=== PATIENT | female | born 1995 | race Two or more races ===

== ENCOUNTER 2018-04-23 19:24 | Emergency (ER) | payer SELFPAY ==
[~2018-04-23] VITALS: Ht 170.2 cm; Wt 77.1 kg
[~2018-04-23 19:24] MED LIST: FERROUS SULFAT325 MG ORAL; MOTRIN600 MG PO; NKM
--- NOTE | 2018-04-23 19:35 | NUR ---
ED Nurse Note: pt ambulated to ED c/o lower right abdominal pain and lower back pain x 1week. patient rates her pain a 6/10 pain and states that "her stomach has been making alot of noises"
[2018-04-23 19:36] VITALS: BP 132/75
[2018-04-23 20:13] LABS: APPEARANCE,URINE CLEAR; BILIRUBIN, URINE NEGATIVE (NEGATIVE); COLOR,URINE PALE YELLOW; GLUCOSE, URINE (UA) NEGATIVE (NEGATIVE); KETONES,URINE NEGATIVE (NEGATIVE); LEUKOCYTE ESTERASE ,URINE 1+ (NEGATIVE); NITRITE,URINE NEGATIVE (NEGATIVE); PH,URINE 7 (4.5-8.0); PROTEIN,URINE NEGATIVE (NEGATIVE); UROBILINOGEN,URINE NORMAL MG/DL (0.0-1.0)
[2018-04-23 20:14] LABS: ANION GAP 8 mmol/L (5-15); BLOOD UREA NITROGEN 8 mg/dL (7-18); CALCIUM 9.8 MG/DL (8.5-10.1); CARBON DIOXIDE 28 MMOL/L (21-32); CHLORIDE 104 MMOL/L (98-107); CREATININE 0.8 MG/DL (0.55-1.30); POTASSIUM 4.1 MMOL/L (3.5-5.1); SODIUM 140 MMOL/L (136-145)
[2018-04-23 20:21] LABS: ALANINE AMINOTRANSFERASE 15 U/L (12-78); ALBUMIN 3.9 G/DL (3.4-5.0); ALBUMIN/GLOBULIN RATIO 0.9 (1.0-2.7); ALKALINE PHOSPHATASE 91 U/L (46-116); ASPARTATE AMINO TRANSFERASE 12 U/L (15-37); BILIRUBIN,TOTAL 0.3 MG/DL (0.2-1.0)
[2018-04-23 20:27] LABS: BASOPHILS % (AUTO) 1.3 % (0.0-2.0); EOSINOPHILS % (AUTO) 1.6 % (0.0-3.0); HEMATOCRIT 39.1 % (37.0-47.0); HEMOGLOBIN 12.4 G/DL (12.0-16.0); LYMPHOCYTES % (AUTO) 35.2 % (20.0-45.0); MEAN CORPUSCULAR VOLUME 83 FL (80-99); MONOCYTES % (AUTO) 7.7 % (1.0-10.0); NEUTROPHILS % (AUTO) 54.3 % (45.0-75.0); PLATELET COUNT 294 K/UL (150-450); RED BLOOD COUNT 4.72 M/UL (4.20-5.40); RED CELL DISTRIBUTION WIDTH 12.9 % (11.6-14.8); WHITE BLOOD COUNT 7.4 K/UL (4.8-10.8)
--- NOTE | 2018-04-23 20:47 | NUR ---
X-ray notified to page [employer] tech.
--- NOTE | 2018-04-23 21:23 | Emergency Room Report ---
History of Present Illness General Chief Complaint: Abdominal Pain Source: Patient Present Illness HPI 22-year-old female presents to the emergency department complaining of 6 out of 10 in severity right lower quadrant abdominal pain progressive 1 week. Patient reports constant dull ache with intermittent sharp episodes of pain. Patient denies fevers, chills, nausea or vomiting. Patient denies vaginal discharge or bleeding. Patient states that her next her menstrual cycle is not due for 2 weeks she denies suspicion of . Patient states that her pain is localized in the right lower quadrant and will on occasion radiate backwards her low back trauma or fall she denies constipation or diarrhea. She denies suspicion of STI eyes denies dysuria she does report increase in urinary frequency and strong odor of the urine she denies urgency or hematuria. Allergies: Coded Allergies: No Known Allergies (Unverified , 06/29/12) Patient History Past Medical History: see triage record Past Surgical History: none Pertinent Family History: none Last Menstrual Period: 04/05/2018 Now: No Reviewed Nursing Documentation: PMH: Agreed; PSxH: Agreed Nursing Documentation-PMH Past Medical History: No Stated History Review of Systems All Other Systems: negative except mentioned in HPI Physical Exam Vital Signs Date Time Temp Pulse Resp B/P (MAP) Pulse Ox O2 Delivery O2 Flow Rate FiO2 04/23/18 19:29 98.4 93 14 141/79 97 Room Air Sp02 EP Interpretation: reviewed, normal General Appearance: no apparent distress, alert, GCS 15, non-toxic Head: normocephalic, atraumatic Eyes: bilateral eye normal inspection, bilateral eye PERRL ENT: hearing grossly normal, normal voice Neck: full range of motion Respiratory: lungs clear, normal breath sounds, speaking full sentences Cardiovascular #1: regular rate, rhythm Gastrointestinal: normal bowel sounds, non tender, soft, non-distended, no guarding Rectal: deferred Genitourinary: normal inspection, no CVA tenderness, ext genitalia/vag normal, other - Mild right adnexal TTP Musculoskeletal: back normal, gait/station normal, normal range of motion, non- tender Neurologic: alert, oriented x3, responsive, motor strength/tone normal, sensory intact, normal gait, speech normal, grossly normal Psychiatric: judgement/insight normal Skin: normal color, no rash, warm/dry, well hydrated Lymphatic: no adenopathy Medical Decision Making PA Attestation Dr. Powell is my supervising Physician whom patient management has been discussed with. Diagnostic Impression: Primary Impression: Ovarian cyst Qualified Codes: N83.201 - Unspecified ovarian cyst, right side ER Course 22-year-old female presents to the emergency department complaining of 6 out of 10 in severity right lower quadrant abdominal pain progressive 1 week. Patient reports constant dull ache with intermittent sharp episodes of pain. Patient denies fevers, chills, nausea or vomiting. Patient denies vaginal discharge or bleeding. Patient states that her next her menstrual cycle is not due for 2 weeks she denies suspicion of . Patient states that her pain is localized in the right lower quadrant and will on occasion radiate backwards her low back trauma or fall she denies constipation or diarrhea. She denies suspicion of STI eyes denies dysuria she does report increase in urinary frequency and strong odor of the urine she denies urgency or hematuria. Ddx considered but are not limited to Diverticulitis, acute appy, diarrhea,UC, PUD, GE, pancreatitis, gallstone, ovarian torsion, ectopic , PID tubo-ovarian abscess. Vital signs: are WNL, pt. is afebrile H&PE are most consistent with possible ovarian cyst ORDERS: -CBC, CMP, LIPASE: Unremarkable -UA: Unremarkable -URINE HCG:Negative ED INTERVENTIONS: -Pt. declines pain medication at this time. -Toradol IV Low suspicion for Appendicitis at this time, given lack of significant tenderness on PE. --US- 2mm right ovarian cyst. DISCHARGE: At this time pt. is stable for d/c to home. Will provide printed patient care instructions, and any necessary prescriptions. Care plan and follow up instructions have been discussed with the patient prior to discharge. Labs Test 04/23/18 18:50 04/23/18 19:50 White Blood Count 7.4 K/UL (4.8-10.8) Red Blood Count 4.72 M/UL (4.20-5.40) Hemoglobin 12.4 G/DL (12.0-16.0) Hematocrit 39.1 % (37.0-47.0) Mean Corpuscular Volume 83 FL (80-99) Mean Corpuscular Hemoglobin 26.2 PG (27.0-31.0) Mean Corpuscular Hemoglobin Concent 31.6 G/DL (32.0-36.0) Red Cell Distribution Width 12.9 % (11.6-14.8) Platelet Count 294 K/UL (150-450) Mean Platelet Volume 8.1 FL (6.5-10.1) Neutrophils (%) (Auto) 54.3 % (45.0-75.0) Lymphocytes (%) (Auto) 35.2 % (20.0-45.0) Monocytes (%) (Auto) 7.7 % (1.0-10.0) Eosinophils (%) (Auto) 1.6 % (0.0-3.0) Basophils (%) (Auto) 1.3 % (0.0-2.0) Sodium Level 140 MMOL/L (136-145) Potassium Level 4.1 MMOL/L (3.5-5.1) Chloride Level 104 MMOL/L (98-107) Carbon Dioxide Level 28 MMOL/L (21-32) Anion Gap 8 mmol/L (5-15) Blood Urea Nitrogen 8 mg/dL (7-18) Creatinine 0.8 MG/DL (0.55-1.30) Estimat Glomerular Filtration Rate > 60 mL/min (>60) Glucose Level 91 MG/DL (74-106) Calcium Level 9.8 MG/DL (8.5-10.1) Total Bilirubin 0.3 MG/DL (0.2-1.0) Aspartate Amino Transf (AST/SGOT) 12 U/L (15-37) Alanine Aminotransferase (ALT/SGPT) 15 U/L (12-78) Alkaline Phosphatase 91 U/L (46-116) Total Protein 8.3 G/DL (6.4-8.2) Albumin 3.9 G/DL (3.4-5.0) Globulin 4.4 g/dL Albumin/Globulin Ratio 0.9 (1.0-2.7) Lipase 188 U/L (73-393) Urine Color Pale yellow Urine Appearance Clear Urine pH 7 (4.5-8.0) Urine Specific [place] 1.010 (1.005-1.035) Urine Protein Negative (NEGATIVE) Urine Glucose (UA) Negative (NEGATIVE) Urine Ketones Negative (NEGATIVE) Urine Blood Negative (NEGATIVE) Urine Nitrite Negative (NEGATIVE) Urine Bilirubin Negative (NEGATIVE) Urine Urobilinogen Normal MG/DL (0.0-1.0) Urine Leukocyte Esterase 1+ (NEGATIVE) Urine RBC 0-2 /HPF (0 - 2) Urine WBC 0-2 /HPF (0 - 2) Urine Squamous Epithelial Cells Few /LPF (NONE/OCC) Urine Amorphous Sediment Few /LPF (NONE) Urine Bacteria Few /HPF (NONE) Urine HCG, Qualitative Negative (NEGATIVE) CT/MRI/US Diagnostic Results CT/MRI/US Diagnostic Results : Impression IMPRESSION: Right ovarian cyst measuring 2.1 x 1.8 x 2 cm.-----Per official radiology report- Please see report for specific details. Last Vital Signs Date Time Temp Pulse Resp B/P (MAP) Pulse Ox O2 Delivery O2 Flow Rate FiO2 04/23/18 19:36 93 14 Room Air 04/23/18 19:36 98.4 132/75 97 Status: improved Disposition: HOME, SELF-CARE Condition: Stable Scripts Ibuprofen* (MOTRIN*) 600 Mg Tablet 600 MG ORAL THREE TIMES A DAY, #30 TAB 0 Refills Prov: Tran Cloud 04/23/18 Referrals: NON PHYSICIAN (PCP) Departure Forms: Return to Work Return to Work Date: Apr 26, 2018 Work Restrictions: None Other Restrictions: May return Sooner if Symptoms have resolved. Return to Full Activity: Apr 26, 2018 Patient Instructions: Ovarian Cyst, [id number] Additional Instructions: Take medications as directed. Follow up with a Primary Care Provider in 3-5 days, even if your symptoms have resolved. --Please review list of primary care clinics, if you do not already have a primary care provider Return sooner to ED if new symptoms occur, or current symptoms become worse. - Please note that this Emergency Department Report was dictated using [employer] grinder technology software, occasionally this can lead to erroneous entry secondary to interpretation by the dictation equipment. Tran Cloud Apr 23, 2018 21:23
[2018-04-23] MEDS ORDERED: IBUPROFEN600 MG ORAL (22:36)
[2018-04-23] MEDS ORDERED: Ketorolac 30mg Inj IV ONE (22:45)
--- NOTE | 2018-04-23 22:58 | Diagnostic Imaging Report ---
EXAM: US Pelvis Complete, Transabdominal CLINICAL HISTORY: PAIN TECHNIQUE: Real-time transabdominal pelvic ultrasound (complete) with image documentation. COMPARISON: CT Abdomen and Pelvis dated 06/29/12. FINDINGS: Uterus/cervix: The uterus measures 7.5 x 3.4 x 5.4 cm. Normal endometrial stripe thickness measuring 6.7 mm in thickness.. No myometrial mass. Right ovary: Right ovary measures 2.6 x 2.6 x 2.7 cm. Right ovarian cyst measuring 2.1 x 1.8 x 2 cm. Normal blood flow. Left ovary: Left ovary measures 2.8 x 2.1 x 2.4 cm. Normal blood flow. Free fluid: No free fluid. Bladder: Unremarkable as visualized. Wall is normal thickness for degree of distention. IMPRESSION: Right ovarian cyst measuring 2.1 x 1.8 x 2 cm.
[2018-04-23 23:15] VITALS: BP 129/72
--- NOTE | 2018-04-23 23:15 | NUR ---
ED Nurse Note: Pt cleared DC by JARROD Mayfield. Pt is A/Ox4, VSS, DC instruction and prescriptions given, pt verbalized understanding. ID wristband removed. All belongings given to pt. Pt ambulated out of ER with steady gait.
== END 2018-04-23 23:15 | disposition home or self-care (01) ==
LOC: EMR 20:35
DX: H33.11 Cyst of ora serrata (principal)
CPT/HCPCS: 36415; 76857; 80053; 81003; 81025; 83690; 85025; 96374; 99284; J1885